=== PATIENT | female | born 1990 | race Caucasian/White ===

== ENCOUNTER 2017-07-16 19:29 | Emergency (ER) | payer MEDICAID ==
--- NOTE | 2017-07-16 20:40 | NUR ---
PT LEFT WITHOUT BEING SEEN PRIOR TO TRIAGE
== END 2017-07-16 20:40 | disposition left against medical advice (07) ==
LOC: SED 19:29
DX: Z53.21 Procedure and treatment not carried out due to patient leaving prior to being seen by health care provider (principal)

== ENCOUNTER 2017-07-17 13:16 | Emergency (ER) | payer MEDICAID ==
[~2017-07-17] VITALS: Ht 170.2 cm; Wt 83.9 kg
[2017-07-17 13:16] VITALS: BP_SYST 113
== END 2017-07-17 14:56 | disposition home or self-care (01) ==
LOC: SED 13:16
DX: Z76.0 Encounter for issue of repeat prescription (principal); F43.10 Post-traumatic stress disorder, unspecified; Z88.2 Allergy status to sulfonamides; Z88.1 Allergy status to other antibiotic agents
CPT/HCPCS: 99283